=== PATIENT | male | born 1940 | race Caucasian/White ===

== ENCOUNTER 2016-12-08 18:02 | Emergency (ER) | payer OTHER ==
[~2016-12-08] VITALS: Ht 187.9 cm; Wt 108.9 kg
[~2016-12-08 18:02] MED LIST: AMLODIPINE10 MG PO; B12100 MC1 PO; CEREFOLIN PO; CITALOPRAM40 MG PO; COLACE100 MG PO; COUMADIN5 M2 PO; CYCLOSPORINE25 M1 PO; CYCLOSPORINE50 MG PO; Diltiazem180 MG PO; ELIQUIS5 M1 PO; Econopred Plus 15 ML INTRAOC; FINASTERIDE5 MG PO; FLOMAX0.4 MG PO; GABAPENTIN300 MG PO; IFEREX 150150 MG PO; IRON325 M1 PO; LISINOPRIL5 MG PO; MAGNESIUM OXID420 M1 PO; METHYLFOLATE PO; MIRTAZAPINE15 MG PO; MIRTAZAPINE45 M1 PO; MOXIFLOXACIN INTRAOC; MYCOPHENOLATE250 MG PO; MYCOPHENOLATE500 MG PO; NEURONTIN300 MG PO; OMEPRAZOLE20 MG PO; SODIUM POL PO; SPS15 GM/60 M PO; SULFAMETH/TRIME1 TAB PO; SYNTHROID,LEVO25 MCG PO; Synthroid,Levo25 MCG PO; Synthroid,Levo50 MCG PO; TRAMADOL50 MG PO; ULTRAM50 MG PO; VIREAD300 MG PO; VITAMIN C100 M1 PO; VITAMIN D50000 I3 PO; VOLTAREN11 INTRAOC; [UNRECOGNIZED DRUG - OTHER] PO
[2016-12-08 18:44] LABS: BASO # 0.1 10*3/uL (0.0-0.1); BASO % 0.6 % (0.0-1.0); EOS # 0.1 10*3/uL (0.0-0.4); HEMATOCRIT 43.9 % (42.0-52.0); HEMOGLOBIN 13.9 g/dl (14.0-18.0); IG # 0.1 10*3/uL (0.0-0.1); LYMPH # 1.3 10*3/uL (1.3-4.4); LYMPH % 15.5 % (27.0-41.0); MEAN CELL VOLUME 96.7 fl (80.0-94.0); MEAN CORPUSCULAR HGB 30.6 pg (27.0-31.0); MEAN CORPUSCULAR HGB CONC 31.7 g/dl (33.0-37.0); MEAN PLATELET VOLUME 9.7 fl (9.6-12.3); MONO # 0.7 10*3/uL (0.1-1.0); NEUT # 6.1 10*3/uL (2.3-7.9); NEUT % 74.2 % (47.0-73.0); PLATELET COUNT AUTOMATED 145 10*3/uL (130-400); RED BLOOD COUNT 4.54 10*6/uL (4.50-5.90); RED CELL DISTRI WIDTH 14.2 % (0-14.5); WHITE BLOOD COUNT 8.3 10*3/uL (4.8-10.8)
[2016-12-08 19:05] LABS: ALBUMIN 3.7 gm/dl (3.1-4.5); ALKALINE PHOSPHATASE 114 U/L (45-117); BILIRUBIN, TOTAL 0.5 mg/dl (0.2-1.0); BUN 39 mg/dl (7-24); CARBON DIOXIDE 28 mmol/L (21-32); CHLORIDE 103 mmol/L (98-107); EST GLOM FILT AFRICAN AMERICAN 31 ml/min; GLUCOSE 133 mg/dL (65-99); MAGNESIUM 2.2 mg/dL (1.5-2.1); POTASSIUM 5.1 mmol/L (3.5-5.1); SGOT/AST 22 IU/L (3-35); SGPT/ALT 29 U/L (12-78); SODIUM 141 mmol/L (136-145); TOTAL PROTEIN 7.7 gm/dL (6.4-8.2)
[2016-12-08 19:06] LABS: PROTHROMBIN TIME 10.6 SECONDS (9.0-12.4); TROPONIN I < 0.015 ng/ml (<0.5)
[2016-12-08 20:42] LABS: LA>2 REFLEX 2 HR DRAW NOW
== END 2016-12-08 19:22 | disposition short-term general hospital (02) ==
LOC: ED 18:02
PROVIDERS: Student in an Organized Health Care Education/Training Program
DX: I63.9 Cerebral infarction, unspecified (principal); Z98.890 Other specified postprocedural states; Z98.49 Cataract extraction status, unspecified eye; Z88.8 Allergy status to other drugs, medicaments and biological substances

== ENCOUNTER 2017-03-12 11:29 | Emergency (ER) | payer OTHER ==
[~2017-03-12] VITALS: Ht 180.3 cm; Wt 99.8 kg
== END 2017-03-12 15:03 | disposition home or self-care (01) ==
LOC: ED 11:29
DX: K59.00 Constipation, unspecified (principal); Z88.8 Allergy status to other drugs, medicaments and biological substances; Z79.899 Other long term (current) drug therapy

== ENCOUNTER 2017-12-26 10:00 | Inpatient (IN) | payer OTHER ==
[2017-12-26] VITALS (11 sets, daily range): BP systolic 108–147; BP diastolic 70–90
[~2017-12-26] VITALS: Ht 177.8 cm; Wt 95.3 kg
--- NOTE | ~2017-12-26 | CON ---
[place], [place] REPORT OF CONSULTATION NAME: CHELA LLAMAS UNIT #: [id number] ROOM: 424 DOCTOR: LOLA CUEVAS MD BIRTHDATE: [birth year] DOS: 12/27/2017 CHIEF COMPLAINT: "I don't have a doctor." HISTORY OF PRESENT ILLNESS: This is a 77-year-old male who presented to [facility] with his due to increased confusion, weakness and urinary incontinence. On the morning of admission, he was found by his lying partially off of his hospital bed, unable to get up. She tried to assist him, but he was unable to walk. The said that he was extremely confused and she was fearful that he would fall. She brought him to the hospital where he was found to be increasingly confused and disoriented. He was not able to even follow simple commands and was not able to move his hands in a purposeful manner. This morning, his , who was at bedside, did state that he was almost back to his baseline and was able to converse and follow commands. He has had episodes like this previously when he has had a CVA in the past. She also notes that he has been having cognitive decline; however, in between these episodes and she has to repeat herself multiple times for him to remember things. He denies any issues with depression, posttraumatic stress disorder and states that sleep and appetite have not been an issue for him. PAST MEDICAL HISTORY: Remarkable for coronary artery disease, COPD, CVA times 2, diabetes, hepatitis B, Agent [place] exposure, liver cancer with liver transplant, neuropathy, cancer of face. MENTAL STATUS: He is alert and oriented to person, place, select others, but not time. He is still somewhat confused and does have a significant amount of word finding difficulty and a significant amount of processing difficulty. Of very simple questions, he is able to answer yes and no and give some details, but when the questions become more complex, he has a greater difficulty in responding. He convincingly denies depression, lopez, hypomania or psychosis. DIAGNOSIS: Alzheimer dementia. PLAN: The patient is already on Namenda. I will add Exelon patch 4.6 mg a day. Nice thing about the Exelon is that it is metabolized and excreted by the target enzymes, it has absolutely no effect on liver or kidney, so it will be a safe medication to add to his already complicated medication regimen. I do think that this will help in augmenting the Namenda in improving his cognition and help him maintain ADLs and improve any possibility of behavioral issues. I went ahead and ordered some other screening labs to check a B12 and a D just to make certain that these are normal. His ammonia level is normal at 25. I would suggest he follow up then [facility] [place] [place], [place] REPORT OF CONSULTATION NAME: CHELA LLAMAS UNIT #: [id number] ROOM: 424 DOCTOR: LOLA CUEVAS MD BIRTHDATE: [birth year] LOLA CUEVAS MD CM:CONSTR:REPORT OF CONSULTATION 1011 12/27/17 1037 interface
[~2017-12-26 10:00] MED LIST changes: -VITAMIN C100 M1 PO; +VITAMIN C500 M4 PO
[2017-12-26 10:48] LABS: BASO % 0.5 % (0.0-1.0); EOS # 0.1 10*3/uL (0.0-0.4); EOS % 1.4 % (1.0-4.0); HEMATOCRIT 44.6 % (42.0-52.0); HEMOGLOBIN 14.7 g/dl (14.0-18.0); LYMPH # 0.7 10*3/uL (1.3-4.4); LYMPH % 8.8 % (27.0-41.0); MEAN CELL VOLUME 96.3 fl (80.0-94.0); MEAN CORPUSCULAR HGB 31.7 pg (27.0-31.0); MEAN PLATELET VOLUME 9.7 fl (9.6-12.3); MONO # 0.8 10*3/uL (0.1-1.0); MONO % 10.1 % (3.0-9.0); NEUT # 6.2 10*3/uL (2.3-7.9); NEUT % 77.8 % (47.0-73.0); PLATELET COUNT AUTOMATED 165 10*3/uL (130-400); RED BLOOD COUNT 4.63 10*6/uL (4.50-5.90); RED CELL DISTRI WIDTH 15.3 % (0-14.5)
[2017-12-26 10:56] LABS: ACT PARTIAL THROMBO TIME 35.8 SECONDS (20.8-31.5); INTERNATIONAL NORM RATIO 2.8 (2.0-3.5)
[2017-12-26 11:04] LABS: ALBUMIN 3.5 gm/dl (3.1-4.5); ALKALINE PHOSPHATASE 125 U/L (45-117); BUN 30 mg/dl (7-24); CHLORIDE 104 mmol/L (98-107); CREATININE 1.95 mg/dL (0.70-1.30); LIPASE 95 U/L (73-393); POTASSIUM 4.8 mmol/L (3.5-5.1); SGOT/AST 24 IU/L (3-35); SGPT/ALT 24 U/L (12-78); SODIUM 140 mmol/L (136-145); TOTAL PROTEIN 7.9 gm/dL (6.4-8.2)
[2017-12-26 11:07] LABS: TROPONIN I < 0.015 ng/ml (<0.045)
[2017-12-26 11:10] LABS: BILIRUBIN NEGATIVE (NEGATIVE); BLOOD 2+ (NEGATIVE); CLARITY CLEAR (CLEAR); COLOR YELLOW (YELLOW); GLUCOSE NEGATIVE (NEGATIVE); KETONE NEGATIVE (NEGATIVE); LEUKO ESTERASE NEGATIVE (NEGATIVE); NITRITE NEGATIVE (NEGATIVE); SPECIFIC GRAVITY 1.025 (1.005-1.030); UROBILINOGEN 0.2 E.U./dl (0.2-1.0)
[2017-12-26 11:25] LABS: EPITHELIAL CELLS 0-2; RBC 31-40 rbc/hpf (0-2); WBC 0-2 wbc/hpf (0-5)
[2017-12-26] MEDS ORDERED: SENNA8.6 MG PO (16:56)
[2017-12-26] MEDS ORDERED: COUMADIN7.5 M1 PO (16:56)
[2017-12-26] MEDS ORDERED: ASPIRIN ADULT L81 M1 PO (16:57)
[2017-12-26] MEDS ORDERED: NAMENDA10 MG PO (16:57)
[2017-12-26] MEDS ORDERED: DEPAKOTE DR500 MG PO (16:58)
[2017-12-26] MEDS ORDERED: DOCUSATE SODIU100 M2 PO (16:59)
[2017-12-26] MEDS ORDERED: VITAMIN D31000 UNI1 PO (17:05)
[2017-12-27] VITALS: BP 141/79
[2017-12-27 04:00] VITALS: BP 129/88
[2017-12-27 08:00] VITALS: BP 117/83
[2017-12-27 11:54] LABS: VITAMIN D, 25-HYDROXY 40.9 ng/mL (30-100)
[2017-12-27 12:00] VITALS: BP 112/63
[2017-12-27 16:00] VITALS: BP 110/61
[2017-12-27 20:00] VITALS: BP 121/75
[2017-12-28] VITALS: BP 135/74
[2017-12-28 08:00] VITALS: BP 127/65
[2017-12-28 12:00] VITALS: BP 135/71
[2017-12-28] MEDS ORDERED: LEVAQUIN750 M1 PO (15:29)
[2017-12-28] MEDS ORDERED: PREDNISONE10 MG PO (15:29)
[2017-12-28 16:00] VITALS: BP 122/64
[2017-12-28 20:00] VITALS: BP 132/74
== END 2017-12-28 20:20 | disposition other institution (70) | DRG 871 ==
LOC: ED 10:00 → 4E 13:37 → EDHOLD 13:37 → 4E 13:50
PROVIDERS: Nurse Practitioner Family; Psychiatry & Neurology Psychiatry
DX: A41.9 Sepsis, unspecified organism (principal); J18.9 Pneumonia, unspecified organism; G93.41 Metabolic encephalopathy; E44.0 Moderate protein-calorie malnutrition; I48.91 Unspecified atrial fibrillation; Z94.4 Liver transplant status; N18.4 Chronic kidney disease, stage 4 (severe); E11.22 Type 2 diabetes mellitus with diabetic chronic kidney disease; E11.40 Type 2 diabetes mellitus with diabetic neuropathy, unspecified; J44.0 Chronic obstructive pulmonary disease with (acute) lower respiratory infection; J44.1 Chronic obstructive pulmonary disease with (acute) exacerbation; G30.9 Alzheimer's disease, unspecified; F02.80 Dementia in other diseases classified elsewhere, unspecified severity, without behavioral disturbance, psychotic disturbance, mood disturbance, and anxiety; R15.9 Full incontinence of feces; I51.7 Cardiomegaly; R32 Unspecified urinary incontinence; E66.9 Obesity, unspecified; Z91.81 History of falling; L98.9 Disorder of the skin and subcutaneous tissue, unspecified; S80.812A Abrasion, left lower leg, initial encounter; R74.8 Abnormal levels of other serum enzymes; K59.00 Constipation, unspecified; I25.119 Atherosclerotic heart disease of native coronary artery with unspecified angina pectoris; L89.522 Pressure ulcer of left ankle, stage 2; W19.XXXA Unspecified fall, initial encounter; Z86.73 Personal history of transient ischemic attack (TIA), and cerebral infarction without residual deficits; Z88.8 Allergy status to other drugs, medicaments and biological substances; Z79.899 Other long term (current) drug therapy; Z87.01 Personal history of pneumonia (recurrent); Z98.42 Cataract extraction status, left eye; Z98.41 Cataract extraction status, right eye; Z96.1 Presence of intraocular lens; Z95.5 Presence of coronary angioplasty implant and graft; Z85.05 Personal history of malignant neoplasm of liver; Z85.828 Personal history of other malignant neoplasm of skin; Z82.49 Family history of ischemic heart disease and other diseases of the circulatory system; Z83.3 Family history of diabetes mellitus; Y93.89 Activity, other specified; Y92.89 Other specified places as the place of occurrence of the external cause; Y99.8 Other external cause status; Z68.31 Body mass index [BMI] 31.0-31.9, adult

== ENCOUNTER 2018-01-11 19:23 | Inpatient (IN) | payer OTHER ==
[~2018-01-11] VITALS: Ht 180.3 cm; Wt 95.3 kg
--- NOTE | ~2018-01-11 | CON ---
[place], [place] REPORT OF CONSULTATION NAME: CHELA LLAMAS UNIT #: [id number] ROOM: 419 DOCTOR: MIKY VELASQUEZ MD,KESHIA BIRTHDATE: [birth year] DOS: 01/13/2018 REASON FOR CONSULTATION: Assessment of the acute pneumonia. CONSULTATION REQUESTED BY: The hospitalist services. A 77-year-old white male patient is unable to give any history, was noted with confusion. The patient answers some questions, but not able to correctly answer any questions was noted with conversation, which was effective for the history taken of this patient. The history continue to document the patient is actually with the medical record for the current hospitalization done by the other physician and the primary care attending. HISTORY OF PRESENT ILLNESS: A 77-year-old white male patient brought to the Emergency Room by the EMS from the nursing facility. The patient is a resident of [facility]. He has been noted with an increased confusional status at the nursing facility and not acting right. The patient was assessed in the Emergency Room and had a CT scan of the chest done, which has been reported with finding of acute pneumonia. The patient has been noted with some wheezing intermittently as well. General weakness and fatigue was also reported. The patient has been known with past history of CVA as well. There has been some cough noted, but there was no sputum expectoration reported by the nursing staff. REVIEW OF SYSTEMS: Cannot be completed due to the patient's current confusional status. PAST MEDICAL HISTORY: Reported with: 1. Possibility of dementia. 2. Coronary artery disease. 3. Chronic kidney disease, stage 4. 4. History of chronic obstructive pulmonary disease. 5. 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 6. Type 2 diabetes mellitus. 7. History of hepatitis B. 8. History of Agent [place] exposure. 9. History of lung cancer, which has been treated with liver transplant with chronic immunosuppression at this time. 10. Peripheral neuropathy. 11. History of skin cancer on the face. PAST SURGICAL HISTORY: 1. Coronary artery stent insertion. 2. Cataract extraction with lens implantation. 3. Hernia repair. 4. Liver transplant. 5. Right hip arthroplasty as well. SOCIAL HISTORY: Currently, a resident of [facility]. The patient has not been reported any history of illicit drug use and alcohol use. Past [place], [place] REPORT OF CONSULTATION NAME: CHELA LLAMAS UNIT #: [id number] ROOM: 419 DOCTOR: KESHIA BARTON MD BIRTHDATE: [birth year] history of tobacco use was noted, unknown quantity of duration or tobacco cessation time. FAMILY HISTORY: Noted coronary artery disease, diabetes, and hypertension. MEDICATIONS: Nursing facility noted several that include Coumadin, tenofovir 300 mg every 72 hours, sennoside, Exelon patch, prednisone 10 mg tapering dose, CellCept, Remeron, Namenda, levothyroxine, gabapentin, Proscar, ferrous sulfate, Colace, Depakote, Cardizem, cyclosporine, aspirin, vitamin C, and other p.r.n. medications. ALLERGIES: THE DRUG ALLERGY REPORTED ALLERGY TO THE METOPROLOL. PHYSICAL EXAMINATION: GENERAL: A 77-year-old male currently noted on the oxygen supplementation nasal cannula, lying in the bed, noted awake and alert without any acute major distress. VITAL SIGNS: His height were recorded 5 feet 11 inches, weight of 210 pounds, BMI 29. Temperature max noted as normal. Respiratory rate noted as 18 to 20. The heart rate ranges between 75-44. The blood pressure 99/57-121/61. Pulse oxygen saturation noted on room air as 94% on 2 L nasal cannula was 96% saturation. HEENT: Head was atraumatic. Eyes nonicterus. NECK: Supple. CARDIOVASCULAR: S1, S2 audible without any added sounds. LUNGS: Noted with moderate expiratory wheezing in the lungs bilaterally with crackles in the lower lungs. ABDOMEN: Soft with mild to moderate obesity. Bowel sounds present without any tenderness. EXTREMITIES: Noted with 2+ pitting edema bilateral lower extremities. SKIN: No lesions or rashes. MUSCULOSKELETAL: Without any acute deformities. CENTRAL NERVOUS SYSTEM: The patient with past CVA, cannot be complete the further exam. LABORATORY DATA: The lactic acid 1.8 on 01/11/2018. The INR on 01/11/2018 1.4 and noted 4.4 on an outpatient on 01/09/2018. Ammonia on admission noted less than 10. CBC that was done on 01/11/2018 shows WBC count normal, hemoglobin 13.8, hematocrit 43.5, platelet count were normal. CMP that was done on admission, BUN 69, creatinine 2.43, glucose 183, potassium 5.3, chloride 108. The BMP on 01/12/2018 noted as BUN 55, creatinine 1.93, glucose 146. INR yesterday noted 1.8. CBC yesterday hemoglobin 12.2, platelet count mildly decreased 125. The WBC count normal. The INR this morning was noted therapeutic 2.3. CBC this morning: WBC count 9.2, platelet count 110,000, hemoglobin 11.9, hematocrit 38.6. BMP of this morning noted BUN of 43, creatinine 1.72. ____. Blood culture, which was done on admission 01/11/2018 so far no bacterial growths. Depakote level noted 42.4, which was low. The culture of the sputum yesterday was noted with heavy growth of gram-positive cocci. The Gram stain showed many white blood cell, few epithelial cells, moderate gram-positive cocci in pairs and clusters with rare budding yeast. [place], [place] REPORT OF CONSULTATION NAME: CHELA LLAMAS UNIT #: [id number] ROOM: [facility] DOCTOR: [facility]EL[facility]Z [facility] BIR[facility] [birth year] Chest x-ray that was done on 01/07/2018 was the only chest x-ray done for this patient. On this admission, reported possibility of left lower lobe pneumonia with additional area of atelectasis as well. The patient does have a previous CT scan of the chest that was done on 12/26/2017 shows essentially no major findings of pneumonia in the left lower lung. IMPRESSION: 1. The patient who has been currently admitted to the hospital noted with gram-positive pneumonia with possible methicillin-resistant Staphylococcus aureus versus streptococcal pneumonia would be considered. Possible aspiration would be considered as well. Change in mental status secondary to sepsis as well. Acute kidney injury and organ failure was noted superimposed chronic kidney disease related to acute sepsis and the pneumonia would be very likely an acute chronic immunosuppression with history of liver transplant also increase the risk of current infection. 2. The patient has acute exacerbation of chronic obstructive pulmonary disease as well with active wheezing. 3. Severe debility. 4. Past history of cerebrovascular accident as well. 5. Severe debility was also noted with still confusional status noted somewhat improved. 6. Chronic anticoagulation is noted with suboptimal level on admission, currently noted therapeutic. PLAN OF RECOMMENDATION: Coverage for the gram-positive organism already has been continued with vancomycin as well that continues to remain. Monitor level of vancomycin to adjust the dosing as necessary. Continuation of the Zosyn until the final organism was identified on sputum culture. Obtain a PA lateral chest x-ray as well. Assessing the level of diminished cyclosporine level as well. Other supportive therapy, plan of management and care plan. Oxygen supplementation. Continue maintain saturation 90% greater. Solu-Medrol would be added. PA lateral chest x-ray has been ordered for this patient as well to reassess the current progression pneumonia, more accurately assess the left lower lobe abnormal process. If necessary, CT scan of the chest could be done without contrast for further assessment. If necessary, bronchoscopy done as well. De-escalate the antibiotic after the available culture results. All other supportive therapy, plan and management as well. Usual care. Thanks for allowing me to participate in the care of this patient. [place], [place] REPORT OF CONSULTATION NAME: FARHADCHELA Melissa UNIT #: [id number] ROOM: 419 DOCTOR: KESHIA BARTON MD BIRTHDATE: [birth year] KESHIA BOLAÑOS MD CM:CONSTR:REPORT OF CONSULTATION 1313 01/14/18 0148 interface
--- NOTE | ~2018-01-11 | PR ---
[place], [place] PROGRESS NOTE NAME: CHELA LLAMAS [facility] #: [id number] UNIT #: [id number] ROOM: 419 DOCTOR: MIKY VELASQUEZ MD,KESHIA BIRTHDATE: [birth year] DOS: 01/14/2018 SUBJECTIVE: He has been noted comfortable at this time, noted the coughing with some sputum expectoration. The patient denies symptoms of hemoptysis. Denies symptoms of ____wheezing was noted and was decreased. The patient reported no symptoms of hemoptysis. ____ general weakness and fatigue. Denies any joint pain or skin rashes or lesions. Remaining systems were reviewed, they were noted all negative. OBJECTIVE: VITAL SIGNS: For the patient which has been recorded showed normal temperature, respiratory rate 20, heart rate 80, blood pressure 131/75. Intake 2000, output 2800 mL. The pulse oxygen saturation on 2 liters nasal cannula is 98% saturation. HEENT: Examination shows head was atraumatic. Eyes nonicterus. NECK: Supple. CARDIOVASCULAR: S1, S2 is audible. LUNGS: Noted with scattered wheezing of the patient with basilar crackles. ABDOMEN: Soft, nontender. EXTREMITIES: Without any edema. SKIN: Visible skin, no lesions or rashes. MUSCULOSKELETAL: Without acute deformities. CENTRAL NERVOUS SYSTEM: Noted intact. LABORATORY DATA: Culture of the sputum noted heavy growth of MRSA for this patient. The CMP this morning, BUN 37, creatinine 1.83, glucose 219. Phosphorus was 2.1. Calcium 7.8, albumin 2.5. The INR was noted today 2.3, which is in the therapeutic range. CBC today, hemoglobin 11.4, hematocrit 36.5, platelet count 112,000. Chest x-ray that was done yesterday for the patient was reviewed shows bilateral lower lobe infiltration and pneumonia. IMPRESSION: 1. The patient with acute Methicillin-resistant Staphylococcus aureus pneumonia with changes in mental status, acute kidney injury of the patient, all resolving slowly. 2. The patient with acute exacerbation of chronic obstructive pulmonary disease was also noted with the reduction in the wheezing as well. 3. Chronic immunosuppression with a history of liver transplant. PLAN OF MANAGEMENT: Continuation of vancomycin as a primary antibiotic for this patient. Discontinue all other antibiotics. Continue current dose of corticosteroids. Continuation of bronchodilators for this patient as previously. The patient will be continued on the anticoagulation as the current level was noted therapeutic. Consider obtaining the cyclosporine level of the patient if not done. All other supportive plan of management and care plan. Additional treatment changes to be made for the patient based on the progression of the illness. [place], [place] PROGRESS NOTE NAME: CHELA LLAMAS UNIT #: [id number] ROOM: [facility] DOCTOR: KESHIA BARTON MD BIRTHDATE: [birth year] KESHIA BOLAÑOS MD CM:PNTRANS [id number] KESHIA VELASQUEZ MD 01/14/18 1242 interface
--- NOTE | ~2018-01-11 | PR ---
[place], [place] PROGRESS NOTE NAME: MINORCHELA UNIT #: [id number] ROOM: 419 DOCTOR: RODERICK REYNAGA MD BIRTHDATE: [birth year] DOS: 01/15/2018 SUBJECTIVE: The patient was seen and examined. He is awake and alert. He tells me he is feeling much better. He was receiving a breathing treatment. He was on nasal cannula. He states his appetite has been fair. Denied nausea or vomiting. PHYSICAL EXAMINATION: VITAL SIGNS: Temperature 97.8, pulse 62, respiratory rate 20, blood pressure 102/46. HEENT: Shows no JVD. LUNGS: Diminished breath sounds, but no wheeze. HEART: Normal S1, S2. No rub, thrill or gallop. ABDOMEN: Soft, nontender. There is no organomegaly. EXTREMITIES: Had 1+ edema. SKIN: Showed no rash. LABORATORY DATA: Vancomycin trough of 23, hemoglobin 11.6, white count of 14.0, platelets of 122. BUN 39, creatinine 1.86, sodium 142, potassium 4.9, CO2 of 74, albumin of 2.5. IMPRESSION: 1. Chronic kidney disease, which appears to be in the stage III range. The baseline creatinine in the upper ones range. Renal function is fairly stable near baseline. Continue ongoing supportive care. Dose medications for current creatinine clearance. 2. Pneumonia/leukocytosis. The patient is on antibiotics. Continue to monitor vancomycin levels and adjust appropriately. 3. Anemia. Transfuse as felt needed. 4. Thrombocytopenia. Continue to follow trends. 5. Status post orthotopic heart transplant. Continue immunosuppression. RODERICK REYNAGA MD CM:PNTRANS [phone] RODERICK REYNAGA MD 01/15/182104 interface
--- NOTE | ~2018-01-11 | PR ---
[place], [place] PROGRESS NOTE [id number] UNIT #: [id number] ROOM: 419 DOCTOR: MIKY VELASQUEZ MD,KESHIA BIRTHDATE: [birth year] DOS: 01/16/2018 PULMONARY PROGRESS NOTE SUBJECTIVE: The patient has been noted comfortable at this time showing progressive improvement in respiratory symptoms, reduction of the cough and shortness of breath. He has not been noted symptoms of hemoptysis. The patient was noted general weakness and fatigue, but ambulating with assistance and with use of the walker. He had not been reported any symptoms of headache, diplopia, or dizziness. The patient was continued on intravenous antibiotic for the acute MRSA pneumonia. Remaining systems were reviewed and they were noted all negative. OBJECTIVE: VITAL SIGNS: Normal temperature, respiratory rate 20, heart rate 77, and blood pressure 120/71. Pulse oxygen saturation recorded as 97% saturation on 2 liters nasal cannula. HEENT: On examination, no acute change. NECK: Supple. CARDIOVASCULAR: S1, S2 audible. LUNGS: The patient noted with decreased breath sounds, still noted in lower portion of lung, more on the right than the left side. There were no crackles. ABDOMEN: Soft. Nontender. EXTREMITIES: Without any acute edema. LABORATORY DATA: CBC, WBC count 12.5, hemoglobin 11.9, hematocrit 38.0, and platelet count 141,000. PT/INR elevated at 4.6 today. CMP this morning, BUN 51, creatinine 1.90, and glucose 169. Vancomycin trough level yesterday noted 22.5. DIAGNOSTIC DATA: The chest x-ray that I ordered was completed this morning was reviewed from the PACS images. The patient was noted with resolving pneumonia in lower lungs with a small bilateral pleural fluid seen. IMPRESSION: 1. The patient who has been currently noted with resolving acute change in mental status with acute exacerbation of chronic obstructive pulmonary disease. 2. Resolving acute Methicillin-resistant Staphylococcus aureus pneumonia for the patient. 3. Small pleural fluid secondary to fluid overload. 4. Improving acute kidney injury as well. 5. Mild Coumadin toxicity related to the drug interaction. PLAN OF TREATMENT: Adjustment of the anticoagulation. Decrease Solu-Medrol to 40 mg b.i.d. Continuation of the intravenous antibiotic as well. Bronchodilators. [facility] facility consultation and transfer would be advised for this patient upon discharge. Other supportive therapy and plan of management. Continue pleural fluid, noted small at this time, would not require any intervention such as thoracentesis. Careful diuresis for this patient, [place], [place] PROGRESS NOTE NAME: CHELA LLAMAS Melissa UNIT #: [id number] ROOM: [facility] DOCTOR: KESHIA BARTON MD BIRTHDATE: [birth year] fluid restriction will be recommended for managing pleural effusions. KESHIA BOLAÑOS MD CM:PNTRANS [phone] KESHIA VELASQUEZ MD 01/17/18 0203 interface
--- NOTE | ~2018-01-11 | PR ---
[place], [place] PROGRESS NOTE NAME: CHELA LLAMAS UNIT #: [id number] ROOM: 419 DOCTOR: KESHIA BARTON MD BIRTHDATE: [birth year] DOS: 01/15/2018 SUBJECTIVE: The patient has been noted very comfortable at this time, resting on the bed without any acute distress. Denies symptoms of chest pain. Mental status has been noted close to the baseline at this time. The coughing has been gradually subsiding. There were no symptoms of chest pain. OBJECTIVE: VITAL SIGNS: For the patient noted normal temperature, respiratory rate of 20, heart rate of 63, blood pressure 102/46. The pulse oxygen saturation with 1.5 liter nasal cannula 95% saturation. HEENT: Examination shows no acute change. NECK: Supple. CARDIOVASCULAR: S1, S2 is audible. LUNGS: The patient was noted without any wheezing. Basilar crackles noted in the right lower lung. ABDOMEN: Soft, nontender. EXTREMITIES: Without any acute edema. LABORATORY DATA: CBC today: WBC count 14,000, hemoglobin 11.1. PT/INR noted 4.0, which is about the therapeutic range, BUN 39, creatinine 1.86. IMPRESSION: 1. Acute pneumonia, which has been noted with MRSA, which is responding to treatment. 2. Resolution of the acute kidney progressively at this time. 3. Other medical history, which has been noted stable. PLAN OF TREATMENT: Planning for discharge for patient could be started. Repeat another chest x-ray in the morning for this patient for reassessment of pneumonia prior to the final consideration for discharge. The patient will continue the intravenous antibiotic as vancomycin. Other supportive plan of therapy and care plan. Usual medical management. [place], [place] PROGRESS NOTE NAME: CHELA LLAMAS UNIT #: [id number] ROOM: 419 DOCTOR: KESHIA BARTON MD BIRTHDATE: [birth year] KESHIA BOLAÑOS MD CM:PNTRANS [id number] KESHIA VELASQUEZ MD 01/16/18 0024 interface
--- NOTE | ~2018-01-11 | PR ---
[place], [place] PROGRESS NOTE NAME: CHELA LLAMAS UNIT #: [id number] ROOM: 419 DOCTOR: MIKY VELASQUEZ MD,KESHIA BIRTHDATE: [birth year] DOS: 01/17/2018 SUBJECTIVE: The patient was noted comfortable at this time, resting on the chair for this patient is still awaiting for authorization acceptance to the correction facility. He was continued with his antibiotic as vancomycin for the medical and acute pneumonia with MRSA. The shortness of breath and the other symptoms have been gradually subsiding. OBJECTIVE: VITAL SIGNS: Normal temperature, respiratory rate 20, heart rate 69, blood pressure 121/71 recorded this morning. Pulse oxygen saturation on 2 liters got 99% saturation. HEENT: Showed no acute change. NECK: Supple. CARDIOVASCULAR: S1, S2 audible. LUNGS: The patient was noted with minimal crackles in lung bases. There was no wheezing. ABDOMEN: Soft, nontender. IMPRESSION: Complete resolution of mental status changes, resolving acute pneumonia, clinically and radiologically with MRSA. Mild Coumadin toxicity with INR today noted at 4.4. PLAN OF MANAGEMENT: Continue to adjust the dose of the Coumadin. Continue antibiotics, bronchodilators, monitor chest x-ray of the patient at time. Reduce the Solu-Medrol 40 mg daily since exacerbation of COPD for the patient has been improving progressively. KESHIA BOLAÑOS MD CM:PNSUKHDEV [id number] KESHIA VELASQUEZ MD 01/17/18 2257 interface
--- NOTE | ~2018-01-11 | PR ---
[place], [place] PROGRESS NOTE NAME: CHELA LLAMAS UNIT #: [id number] ROOM: 419 DOCTOR: MIKY VELASQUEZ MD,KESHIA BIRTHDATE: [birth year] DOS: 01/18/2018 SUBJECTIVE: The patient was noted comfortable at this time without any acute distress at the present time. She has been sitting on the chair this morning. Coughing continue to improve. Shortness breath was noted absent at rest. There were symptoms of chest pain. He has been ambulating with a walker in physical therapy. OBJECTIVE: VITAL SIGNS: Normal temperature, respiratory 20, heart rate of 86, blood pressure 120/70. HEENT: Showed no acute change. NECK: Supple. CARDIOVASCULAR: S1, S2 is audible. LUNGS: The patient was noted without any wheezing or crackles at the present time. ABDOMEN: Soft, nontender. EXTREMITIES: Without any acute edema. IMPRESSION: 1. The patient with a stable respiratory status, resolving acute pneumonia progressively with MRSA and respiratory failure. 2. Resolved mental status changes. PLAN OF TREATMENT: No change in plan of therapy. Continue patient's current therapy as in progress. Usual care, other supportive plan of management and care. KESHIA BOLAÑOS MD CM:PNTRANS [phone] KESHIA VELASQUEZ MD 01/18/18 1727 interface
[~2018-01-11 19:23] MED LIST changes: +ASPIRIN ADULT L81 M1 PO; +COUMADIN7.5 M1 PO; +DEPAKOTE DR500 MG PO; +DOCUSATE SODIU100 M2 PO; +LEVAQUIN750 M1 PO; +NAMENDA10 MG PO; +PREDNISONE10 MG PO; +SENNA8.6 MG PO; +VITAMIN D31000 UNI1 PO
[2018-01-11 19:25] VITALS: BP 125/75
[2018-01-11 19:49] LABS: BILIRUBIN NEGATIVE (NEGATIVE); BLOOD NEGATIVE (NEGATIVE); CLARITY SL CLOUDY (CLEAR); COLOR YELLOW (YELLOW); GLUCOSE NEGATIVE (NEGATIVE); KETONE NEGATIVE (NEGATIVE); LEUKO ESTERASE NEGATIVE (NEGATIVE); NITRITE NEGATIVE (NEGATIVE); PH 5.5 (5.0-9.0); SPECIFIC GRAVITY >= 1.030 (1.005-1.030); UROBILINOGEN 0.2 E.U./dl (0.2-1.0)
[2018-01-11 20:00] LABS: BACTERIA TRACE; EPITHELIAL CELLS 0-2; WBC 0-2 wbc/hpf (0-5)
[2018-01-11 20:14] LABS: HEMATOCRIT 43.5 % (42.0-52.0); HEMOGLOBIN 13.6 g/dl (14.0-18.0); MEAN CELL VOLUME 100.7 fl (80.0-94.0); MEAN CORPUSCULAR HGB 31.5 pg (27.0-31.0); MEAN CORPUSCULAR HGB CONC 31.3 g/dl (33.0-37.0); PLATELET COUNT AUTOMATED 136 10*3/uL (130-400); RED BLOOD COUNT 4.32 10*6/uL (4.50-5.90); RED CELL DISTRI WIDTH 15.7 % (0-14.5); WHITE BLOOD COUNT 10.6 10*3/uL (4.8-10.8)
[2018-01-11 20:17] VITALS: BP 122/69
[2018-01-11 20:23] LABS: INTERNATIONAL NORM RATIO 1.5 (2.0-3.5)
[2018-01-11 20:32] LABS: CREATININE 2.43 mg/dL (0.70-1.30); POTASSIUM 5.3 mmol/L (3.5-5.1); TOTAL PROTEIN 6.5 gm/dL (6.4-8.2); TROPONIN I 0.017 ng/ml (<0.045)
[2018-01-11 20:36] LABS: PLATELET SUFFICIENCY NORMAL (NORMAL); TOTAL CELLS COUNTED 100 #CELLS
[2018-01-11 20:38] LABS: BURR CELLS FEW; POLYCHROMASIA SLIGHT; THYROID STIM HORMONE (HS) 2.25 uIU/ml (0.358-4.75)
[2018-01-11 20:57] VITALS: BP 110/65
[2018-01-11] MEDS ORDERED: PREDNISONE10 MG PO (21:45)
[2018-01-11] MEDS ORDERED: DEPAKOTE125 MG PO (21:46)
[2018-01-11] MEDS ORDERED: EXELON1 EACH TD (21:46)
[2018-01-11] MEDS ORDERED: TENOFOVIR DISO300 MG PO (21:47)
[2018-01-11] MEDS ORDERED: COUMADIN7.5 M1 PO (21:47)
[2018-01-11] MEDS ORDERED: REMERON45 M1 PO (21:48)
[2018-01-11] MEDS ORDERED: LEVO-T25 MCG PO (21:48)
[2018-01-11] MEDS ORDERED: SEN-O-TABS8.6 MG PO (21:49)
[2018-01-11] MEDS ORDERED: COUMADIN5 M2 PO (21:50)
[2018-01-11] MEDS ORDERED: DEPAKOTE250 MG PO (21:50)
[2018-01-11] MEDS ORDERED: NAMENDA10 MG PO (21:51)
[2018-01-11] MEDS ORDERED: VITAMIN D31000 UNI1 PO (21:51)
[2018-01-11] MEDS ORDERED: PROSCAR5 M1 PO (21:53)
[2018-01-11] MEDS ORDERED: FERRETTS325 M1 PO (21:53)
[2018-01-11] MEDS ORDERED: DOCUSATE SODIU100 M2 PO (21:54)
[2018-01-11] MEDS ORDERED: VITAMIN C500 M8 PO (21:54)
[2018-01-11] MEDS ORDERED: CELLCEPT500 MG PO (21:55)
[2018-01-11] MEDS ORDERED: ASPIRIN81 M1 PO (21:55)
[2018-01-11] MEDS ORDERED: CYCLOSPORINE25 M2 PO (21:55)
[2018-01-11] MEDS ORDERED: DILTIAZEM CD240 MG PO (21:56)
[2018-01-11] MEDS ORDERED: NEURONTIN300 MG PO (21:56)
[2018-01-11 22:20] VITALS: BP 131/69
[2018-01-12 00:16] VITALS: BP 102/79
[2018-01-12 08:00] VITALS: BP 121/61
[2018-01-12 08:13] LABS: HEMATOCRIT 39.1 % (42.0-52.0); HEMOGLOBIN 12.2 g/dl (14.0-18.0); MEAN CELL VOLUME 101.8 fl (80.0-94.0); MEAN CORPUSCULAR HGB 31.8 pg (27.0-31.0); MEAN CORPUSCULAR HGB CONC 31.2 g/dl (33.0-37.0); PLATELET COUNT AUTOMATED 126 10*3/uL (130-400); RED BLOOD COUNT 3.84 10*6/uL (4.50-5.90); RED CELL DISTRI WIDTH 15.8 % (0-14.5); WHITE BLOOD COUNT 10.6 10*3/uL (4.8-10.8)
[2018-01-12 08:26] LABS: CREATININE 1.93 mg/dL (0.70-1.30); PHOSPHOROUS 2.7 mg/dL (2.5-4.9); POTASSIUM 4.8 mmol/L (3.5-5.1)
[2018-01-12 08:32] LABS: INTERNATIONAL NORM RATIO 1.8 (2.0-3.5)
[2018-01-12 08:59] LABS: TOTAL CELLS COUNTED 100 #CELLS
[2018-01-12 09:00] LABS: PLATELET SUFFICIENCY LOW (NORMAL)
[2018-01-12 12:00] VITALS: BP 101/57
[2018-01-12 16:00] VITALS: BP 99/57
[2018-01-12 20:28] VITALS: BP 115/61; BP 99/57
[2018-01-13] VITALS: BP 154/73
[2018-01-13 00:09] VITALS: BP 143/77
[2018-01-13 06:51] LABS: HEMATOCRIT 38.6 % (42.0-52.0); HEMOGLOBIN 11.9 g/dl (14.0-18.0); MEAN CORPUSCULAR HGB 31.2 pg (27.0-31.0); MEAN CORPUSCULAR HGB CONC 30.8 g/dl (33.0-37.0); MEAN PLATELET VOLUME 9.8 fl (9.6-12.3); PLATELET COUNT AUTOMATED 110 10*3/uL (130-400); RED BLOOD COUNT 3.82 10*6/uL (4.50-5.90); RED CELL DISTRI WIDTH 15.9 % (0-14.5); WHITE BLOOD COUNT 9.2 10*3/uL (4.8-10.8)
[2018-01-13 07:03] LABS: INTERNATIONAL NORM RATIO 2.3 (2.0-3.5)
[2018-01-13 07:14] LABS: TOTAL CELLS COUNTED 100 #CELLS
[2018-01-13 07:15] LABS: BURR CELLS FEW; PLATELET SUFFICIENCY LOW (NORMAL)
[2018-01-13 07:18] LABS: CREATININE 1.72 mg/dL (0.70-1.30); POTASSIUM 4.5 mmol/L (3.5-5.1)
[2018-01-13 08:00] VITALS: BP 120/86
[2018-01-13 12:00] VITALS: BP 116/56
[2018-01-13 13:29] LABS: ABG BASE EXCESS -2.4 mmol/L (-2.0-2.0); ABG HCO3 22.3 mmol/l (22-26); ARTERIAL BLOOD GAS PCO2 40.9 mmHg (35-45); ARTERIAL BLOOD GAS PH 7.357 (7.35-7.45); ARTERIAL BLOOD GAS PO2 54.8 mmHg (80-90)
[2018-01-13 16:00] VITALS: BP 105/58
[2018-01-13 20:00] VITALS: BP 137/67
[2018-01-14] VITALS: BP 154/73
[2018-01-14 06:20] LABS: HEMATOCRIT 36.5 % (42.0-52.0); HEMOGLOBIN 11.4 g/dl (14.0-18.0); MEAN CELL VOLUME 99.2 fl (80.0-94.0); MEAN CORPUSCULAR HGB CONC 31.2 g/dl (33.0-37.0); MEAN PLATELET VOLUME 10.3 fl (9.6-12.3); PLATELET COUNT AUTOMATED 112 10*3/uL (130-400); RED BLOOD COUNT 3.68 10*6/uL (4.50-5.90); RED CELL DISTRI WIDTH 15.7 % (0-14.5); WHITE BLOOD COUNT 8.9 10*3/uL (4.8-10.8)
[2018-01-14 06:37] LABS: ALBUMIN 2.5 gm/dl (3.1-4.5); CREATININE 1.83 mg/dL (0.70-1.30); POTASSIUM 5.1 mmol/L (3.5-5.1)
[2018-01-14 06:40] LABS: PHOSPHOROUS 2.1 mg/dL (2.5-4.9); TOTAL PROTEIN 5.8 gm/dL (6.4-8.2)
[2018-01-14 06:52] LABS: INTERNATIONAL NORM RATIO 2.3 (2.0-3.5)
[2018-01-14 07:32] LABS: PLATELET SUFFICIENCY LOW (NORMAL); TOTAL CELLS COUNTED 100 #CELLS
[2018-01-14 08:00] VITALS: BP 131/75
[2018-01-14 12:00] VITALS: BP 121/57
[2018-01-14 16:00] VITALS: BP 101/62
[2018-01-14 20:00] VITALS: BP 103/59
[2018-01-15] VITALS: BP 138/61
[2018-01-15 06:27] LABS: HEMATOCRIT 36.1 % (42.0-52.0); HEMOGLOBIN 11.6 g/dl (14.0-18.0); MEAN CELL VOLUME 98.6 fl (80.0-94.0); MEAN CORPUSCULAR HGB 31.7 pg (27.0-31.0); MEAN CORPUSCULAR HGB CONC 32.1 g/dl (33.0-37.0); MEAN PLATELET VOLUME 10.7 fl (9.6-12.3); PLATELET COUNT AUTOMATED 122 10*3/uL (130-400); RED BLOOD COUNT 3.66 10*6/uL (4.50-5.90); RED CELL DISTRI WIDTH 15.9 % (0-14.5)
[2018-01-15 06:54] LABS: ALBUMIN 2.5 gm/dl (3.1-4.5); CREATININE 1.86 mg/dL (0.70-1.30); POTASSIUM 4.9 mmol/L (3.5-5.1); TOTAL PROTEIN 5.8 gm/dL (6.4-8.2)
[2018-01-15 07:04] LABS: PLATELET SUFFICIENCY LOW (NORMAL); TOTAL CELLS COUNTED 100 #CELLS
[2018-01-15 08:00] VITALS: BP 128/72
[2018-01-15 12:00] VITALS: BP 102/46
[2018-01-15 16:00] VITALS: BP 121/62
[2018-01-15 20:00] VITALS: BP 126/67
[2018-01-16] VITALS: BP 125/65
[2018-01-16 06:26] LABS: HEMOGLOBIN 11.9 g/dl (14.0-18.0); MEAN CELL VOLUME 98.4 fl (80.0-94.0); MEAN CORPUSCULAR HGB 30.8 pg (27.0-31.0); MEAN CORPUSCULAR HGB CONC 31.3 g/dl (33.0-37.0); MEAN PLATELET VOLUME 10.1 fl (9.6-12.3); PLATELET COUNT AUTOMATED 141 10*3/uL (130-400); RED BLOOD COUNT 3.86 10*6/uL (4.50-5.90); RED CELL DISTRI WIDTH 15.9 % (0-14.5); WHITE BLOOD COUNT 12.5 10*3/uL (4.8-10.8)
[2018-01-16 06:44] LABS: ALBUMIN 2.6 gm/dl (3.1-4.5); CREATININE 1.9 mg/dL (0.70-1.30); POTASSIUM 4.8 mmol/L (3.5-5.1)
[2018-01-16 07:03] LABS: BURR CELLS FEW; PLATELET SUFFICIENCY NORMAL (NORMAL); TOTAL CELLS COUNTED 100 #CELLS
[2018-01-16 07:10] LABS: INTERNATIONAL NORM RATIO 4.6 (2.0-3.5)
[2018-01-16 08:00] VITALS: BP 127/65
[2018-01-16 12:00] VITALS: BP 128/71
[2018-01-16 16:00] VITALS: BP 114/46
[2018-01-16 20:00] VITALS: BP 116/89
[2018-01-17] VITALS: BP 144/73
[2018-01-17 05:55] LABS: ALBUMIN 2.8 gm/dl (3.1-4.5); CREATININE 2.03 mg/dL (0.70-1.30); POTASSIUM 4.5 mmol/L (3.5-5.1); TOTAL PROTEIN 6.3 gm/dL (6.4-8.2); VANCOMYCIN TROUGH 18.7 ug/mL (10-20)
[2018-01-17 06:02] LABS: HEMATOCRIT 41.6 % (42.0-52.0); HEMOGLOBIN 13.1 g/dl (14.0-18.0); MEAN CELL VOLUME 99.3 fl (80.0-94.0); MEAN CORPUSCULAR HGB 31.3 pg (27.0-31.0); MEAN CORPUSCULAR HGB CONC 31.5 g/dl (33.0-37.0); MEAN PLATELET VOLUME 9.8 fl (9.6-12.3); PLATELET COUNT AUTOMATED 148 10*3/uL (130-400); RED BLOOD COUNT 4.19 10*6/uL (4.50-5.90); RED CELL DISTRI WIDTH 16.1 % (0-14.5); WHITE BLOOD COUNT 12.2 10*3/uL (4.8-10.8)
[2018-01-17 06:07] LABS: INTERNATIONAL NORM RATIO 4.2 (2.0-3.5)
[2018-01-17 06:34] LABS: TOTAL CELLS COUNTED 100 #CELLS
[2018-01-17 06:35] LABS: BURR CELLS FEW; PLATELET SUFFICIENCY NORMAL (NORMAL)
[2018-01-17 08:00] VITALS: BP 121/71
[2018-01-17 12:00] VITALS: BP 120/58
[2018-01-17 16:00] VITALS: BP 112/66
[2018-01-17 20:00] VITALS: BP 127/61
[2018-01-18 06:19] LABS: HEMATOCRIT 39.2 % (42.0-52.0); HEMOGLOBIN 12.7 g/dl (14.0-18.0); MEAN CELL VOLUME 98.7 fl (80.0-94.0); MEAN CORPUSCULAR HGB CONC 32.4 g/dl (33.0-37.0); MEAN PLATELET VOLUME 9.7 fl (9.6-12.3); NUCLEATED RED BLOOD CELL 0.2 % (0.0-0.0); PLATELET COUNT AUTOMATED 149 10*3/uL (130-400); RED BLOOD COUNT 3.97 10*6/uL (4.50-5.90); RED CELL DISTRI WIDTH 15.9 % (0-14.5); WHITE BLOOD COUNT 11.1 10*3/uL (4.8-10.8)
[2018-01-18 06:32] LABS: ALBUMIN 2.5 gm/dl (3.1-4.5); CREATININE 1.85 mg/dL (0.70-1.30); POTASSIUM 4.6 mmol/L (3.5-5.1); TOTAL PROTEIN 5.6 gm/dL (6.4-8.2)
[2018-01-18 06:48] LABS: INTERNATIONAL NORM RATIO 2.9 (2.0-3.5)
[2018-01-18 07:00] LABS: TOTAL CELLS COUNTED 100 #CELLS
[2018-01-18 07:01] LABS: BURR CELLS MODERATE; PLATELET SUFFICIENCY NORMAL (NORMAL)
[2018-01-18 08:00] VITALS: BP 136/90
[2018-01-18 12:00] VITALS: BP 120/70
[2018-01-18] MEDS ORDERED: COUMADIN7.5 M1 PO (15:01)
[2018-01-18] MEDS ORDERED: PREDNISONE10 MG PO (15:01)
[2018-01-18] MEDS ORDERED: COUMADIN5 M2 PO (15:01)
[2018-01-18] MEDS ORDERED: DOXYCYCLINE100 MG PO (15:01)
[2018-01-18] MEDS ORDERED: NICODERM T (15:01)
[2018-01-18 16:00] VITALS: BP 100/66
== END 2018-01-18 19:34 | disposition other institution (70) | DRG 871 ==
LOC: ED 19:23 → 4E 21:09 → EDHOLD 21:09 → ICCU 21:16 → 4E 22:53
PROVIDERS: Emergency Medicine; Emergency Medicine Emergency Medical Services; Internal Medicine; Internal Medicine Critical Care Medicine; Internal Medicine Hospice and Palliative Medicine; Student in an Organized Health Care Education/Training Program
DX: A41.9 Sepsis, unspecified organism (principal); J96.01 Acute respiratory failure with hypoxia; G93.41 Metabolic encephalopathy; J15.212 Pneumonia due to Methicillin resistant Staphylococcus aureus; E44.0 Moderate protein-calorie malnutrition; Z94.1 Heart transplant status; D68.59 Other primary thrombophilia; D69.6 Thrombocytopenia, unspecified; E11.22 Type 2 diabetes mellitus with diabetic chronic kidney disease; N17.9 Acute kidney failure, unspecified; J44.1 Chronic obstructive pulmonary disease with (acute) exacerbation; N18.4 Chronic kidney disease, stage 4 (severe); Z94.4 Liver transplant status; J44.0 Chronic obstructive pulmonary disease with (acute) lower respiratory infection; E11.42 Type 2 diabetes mellitus with diabetic polyneuropathy; E11.65 Type 2 diabetes mellitus with hyperglycemia; E87.8 Other disorders of electrolyte and fluid balance, not elsewhere classified; D72.810 Lymphocytopenia; R65.20 Severe sepsis without septic shock; E78.5 Hyperlipidemia, unspecified; E83.41 Hypermagnesemia; I25.10 Atherosclerotic heart disease of native coronary artery without angina pectoris; T45.515A Adverse effect of anticoagulants, initial encounter; I48.2 Chronic atrial fibrillation; D64.9 Anemia, unspecified; F03.90 Unspecified dementia, unspecified severity, without behavioral disturbance, psychotic disturbance, mood disturbance, and anxiety; Z96.641 Presence of right artificial hip joint; K59.00 Constipation, unspecified; E87.70 Fluid overload, unspecified; Z86.73 Personal history of transient ischemic attack (TIA), and cerebral infarction without residual deficits; Z86.19 Personal history of other infectious and parasitic diseases; Z85.05 Personal history of malignant neoplasm of liver; Z98.49 Cataract extraction status, unspecified eye; Z95.5 Presence of coronary angioplasty implant and graft; Z71.6 Tobacco abuse counseling; Z72.0 Tobacco use; Z88.8 Allergy status to other drugs, medicaments and biological substances; Z79.899 Other long term (current) drug therapy; Z79.01 Long term (current) use of anticoagulants; Z68.27 Body mass index [BMI] 27.0-27.9, adult; Z82.49 Family history of ischemic heart disease and other diseases of the circulatory system; Z83.3 Family history of diabetes mellitus; Z79.82 Long term (current) use of aspirin; Z79.51 Long term (current) use of inhaled steroids; E87.5 Hyperkalemia